=== PATIENT | female | born 1990 | race Hispanic/Latino ===

== ENCOUNTER 2016-12-24 22:02 | Emergency (ER) | payer MEDICAID ==
[2016-12-24 22:28] VITALS: RESP 16; O2SAT 97
--- NOTE | 2016-12-24 22:49 | ED PDOC ---
HPI: General Adult Time Seen by Provider: 12/24/16 22:47 Chief Complaint (Nursing): Flu-like Symptoms Chief Complaint (Provider): flu-like illness History Per: Patient (26 y/o female here for evaluation of cough/uri/fever/ chills x 3-4 days. Denies any vomiting/diarrhea. NOtes sore throat. Denies any smoking hx.) Past Medical History Reviewed: Historical Data, Nursing Documentation, Vital Signs Vital Signs: Last Vital Signs Temp 100.1 F H 12/24/16 22:25 Pulse 120 H 12/24/16 22:25 Resp 16 12/24/16 22:25 BP 110/66 12/24/16 22:25 Pulse Ox 97 12/24/16 22:49 - Family History Family History: States: No Known Family Hx - Home Medications Home Medications: Ambulatory Orders Medication Instructions Recorded Nitrofurantoin Macrocrystals 100 mg PO BID #20 cap 09/05/14 [Macrobid] Acetaminophen [Acetaminophen Extra 2 tab PO Q6 PRN #24 tablet 12/24/16 Strength] Promethazine/Codeine 5 ml PO Q12 PRN #100 ml 12/24/16 [Codeine/Promethazine 10 MG/5 Ml-6.25 MG/5 Ml] Pseudoephedrine [Sudafed Tab] 60 mg PO Q6 PRN #24 tab 12/24/16 - Allergies Allergies/Adverse Reactions: Allergies Allergy/AdvReac Type Severity Reaction Status Date / Time No Known Allergies Allergy Verified 11/14/15 21:33 Review of Systems ROS Statement: Except As Marked, All Systems Reviewed And Found Negative Constitutional: Positive for: Fever, Chills ENT: Positive for: Throat Pain Respiratory: Positive for: Cough Physical Exam - Reviewed Nursing Documentation Reviewed: Yes Vital Signs Reviewed: Yes - Physical Exam Appears: Positive for: Well, Non-toxic, No Acute Distress Head Exam: Positive for: ATRAUMATIC, NORMAL INSPECTION, NORMOCEPHALIC Skin: Positive for: Normal Color, Warm, DRY Eye Exam: Positive for: EOMI, Normal appearance, PERRL ENT: Positive for: Normal ENT Inspection, Nasal Congestion Neck: Positive for: Normal, Painless ROM Cardiovascular/Chest: Positive for: Regular Rate, Rhythm Respiratory: Positive for: CNT, Normal Breath Sounds Gastrointestinal/Abdominal: Positive for: Normal Exam, Bowel Sounds, Soft Back: Positive for: Normal Inspection Extremity: Positive for: Normal ROM Neurologic/Psych: Positive for: Alert, Oriented - ECG O2 Sat by Pulse Oximetry: 97 - Progress ED Course And Treament: acetaminophen 975mg x 1 dose patient unable to tolerate rapid strep. Refuses in ED. Zofran 4 mg ODT for nausea Disposition - Clinical Impression Clinical Impression: Influenza-like symptoms - Patient ED Disposition Is Patient to be Admitted: Transfer of Care - Disposition Referrals: FAMILY PROVIDER,NO [Primary Care Provider] - Disposition Time: 23:51 Condition: FAIR Prescriptions: Acetaminophen [Acetaminophen Extra Strength] 2 tab PO Q6 PRN #24 tablet PRN Reason: Fever >100.4 F Promethazine/Codeine [Codeine/Promethazine 10 MG/5 Ml-6.25 MG/5 Ml] 5 ml PO Q12 PRN #100 ml PRN Reason: Cough Pseudoephedrine [Sudafed Tab] 60 mg PO Q6 PRN #24 tab PRN Reason: Nasal Congestion Instructions: Influenza (ED) Forms: [employer] ED School/Work Excuse Patient Signed Over To: Francisca Biggs Handoff Comments: flu
--- NOTE | 2016-12-25 00:01 | ED PDOC ---
- ECG O2 Sat by Pulse Oximetry: 97 Pulse Ox Interpretation: Normal - Progress ED Course And Treament: Case was signed out to marketing writer from [facility] pending flu swab Medical Decision Making Medical Decision Making: Flu is negative. Disposition - Clinical Impression Clinical Impression: Influenza-like symptoms - POA Present On Arrival: None - Disposition Referrals: [facility] [Outside] Disposition: Routine/Home Disposition Time: 01:06 Condition: STABLE Additional Instructions: Take meds as directed. Follow up with primary care doctor in 1-2 days. Prescriptions: Acetaminophen [Acetaminophen Extra Strength] 2 tab PO Q6 PRN #24 tablet PRN Reason: Fever >100.4 F Promethazine/Codeine [Codeine/Promethazine 10 MG/5 Ml-6.25 MG/5 Ml] 5 ml PO Q12 PRN #100 ml PRN Reason: Cough Pseudoephedrine [Sudafed Tab] 60 mg PO Q6 PRN #24 tab PRN Reason: Nasal Congestion Instructions: Cold Symptoms (ED) Forms: [facility] ED School/Work Excuse
[2016-12-25 00:03] VITALS: BP 112/72; PULSE 92; TEMP 99.9
== END 2016-12-25 01:13 | disposition home or self-care (01) ==
LOC: H.ER 22:02
DX: R68.89 Other general symptoms and signs (principal); R50.9 Fever, unspecified; R05 Cough; J02.9 Acute pharyngitis, unspecified

== ENCOUNTER 2018-02-25 21:14 | Emergency (ER) | payer MEDICAID ==
[2018-02-25 21:52] VITALS: O2SAT 99
--- NOTE | 2018-02-25 22:42 | ED PDOC ---
HPI: Female Pain Time Seen by Provider: 02/25/18 22:33 Chief Complaint (Nursing): Female Genitourinary Chief Complaint (Provider): dysuria History Per: Patient Additional Complaint(s): 27-year-old female presents with dysuria and urinary frequency 1 day. Patient also states she had temperature earlier of 101 and she took Tylenol which helped. No nausea or vomiting. Patient has lower abdominal discomfort as well as bilateral flank pain. She denies any concern for STD's. Past Medical History Reviewed: Historical Data, Nursing Documentation, Vital Signs Vital Signs: Last Vital Signs Temp 98.4 F 02/25/18 21:48 Pulse 117 H 02/25/18 21:48 Resp 16 02/25/18 21:48 BP 105/65 02/25/18 21:48 Pulse Ox 99 02/25/18 21:48 - Medical History PMH: No Chronic Diseases - Surgical History Surgical History: No Surg Hx - Family History Family History: States: No Known Family Hx - Living Arrangements Living Arrangements: With Family - Social History Current smoker - smoking cessation education provided: No Alcohol: None Drugs: Denies - Home Medications Home Medications: Ambulatory Orders Medication Instructions Recorded Nitrofurantoin Macrocrystals 100 mg PO BID #20 cap 09/05/14 [Macrobid] Acetaminophen [Acetaminophen Extra 2 tab PO Q6 PRN #24 tablet 12/24/16 Strength] Promethazine/Codeine 5 ml PO Q12 PRN #100 ml 12/24/16 [Codeine/Promethazine 10 MG/5 Ml-6.25 MG/5 Ml] Pseudoephedrine [Sudafed Tab] 60 mg PO Q6 PRN #24 tab 12/24/16 Ciprofloxacin HCl [Cipro] 500 mg PO BID #14 tablet 02/25/18 - Allergies Allergies/Adverse Reactions: Allergies Allergy/AdvReac Type Severity Reaction Status Date / Time No Known Allergies Allergy Verified 11/14/15 21:33 Review of Systems ROS Statement: Except As Marked, All Systems Reviewed And Found Negative Constitutional: Positive for: Fever, Chills Gastrointestinal: Positive for: Abdominal Pain. Negative for: Nausea, Vomiting , Diarrhea, Constipation Genitourinary Female: Positive for: Dysuria, Frequency, Pelvic Pain. Negative for: Incontinence, Hematuria, Vaginal Discharge, Vaginal Bleeding Physical Exam - Reviewed Nursing Documentation Reviewed: Yes Vital Signs Reviewed: Yes - Physical Exam Appears: Positive for: Well, Non-toxic, No Acute Distress Skin: Positive for: Normal Color. Negative for: Rash Eye Exam: Positive for: Normal appearance Cardiovascular/Chest: Positive for: Regular Rate, Rhythm Respiratory: Positive for: Normal Breath Sounds. Negative for: Wheezing, Respiratory Distress Gastrointestinal/Abdominal: Positive for: Soft. Negative for: Tenderness, Distended, Guarding, Rebound Back: Positive for: L CVA Tenderness, R CVA Tenderness. Negative for: Vertebral Tenderness Extremity: Positive for: Normal ROM Neurologic/Psych: Positive for: Alert, Oriented - Laboratory Results Urine POC: Negative Urine dip results: Positive for: Leukocyte Esterase (small), Blood (moderate). Negative for: Nitrate, Ketones, Glucose, Bilirubin, Protein - ECG O2 Sat by Pulse Oximetry: 99 Pulse Ox Interpretation: Normal Medical Decision Making Medical Decision Makin27 year old with dysuria Plan: Urine test Urine dip Urine culture Urine dip positive for leuks and blood. Initial dose Cipro given in ED along with prescription for same. Patient was instructed to drink plenty of fluids, take Tylenol or Motrin for pain as needed and follow up with primary doctor in 2 -3 days. Disposition - Clinical Impression Clinical Impression: Urinary tract infection - Patient ED Disposition Is Patient to be Admitted: No Counseled Patient/Family Regarding: Studies Performed, Diagnosis, Need For Followup, Rx Given - Disposition Referrals: [facility] [Outside] Disposition: Routine/Home Disposition Time: 23:17 Condition: STABLE Additional Instructions: Take prescription meds as directed. Drink plenty of fluids. Tylenol or Advil for pain as needed. Follow-up with primary doctor in 2-3 days. Prescriptions: Ciprofloxacin HCl [Cipro] 500 mg PO BID #14 tablet Instructions: Urinary Tract Infection, Adult (DC) Forms: [employer] (Czech)
[2018-02-25 23:58] VITALS: BP 118/70; PULSE 89; RESP 18; TEMP 98
== END 2018-02-25 23:58 | disposition home or self-care (01) ==
LOC: H.ER 21:14
DX: N39.0 Urinary tract infection, site not specified (principal)

== ENCOUNTER 2018-10-26 10:31 | Observation (INO) | payer MEDICAID ==
[2018-10-26] MEDS ORDERED: Sodium Chloride 0.9% 1,000 ML IV STA ×3 (11:27→18:18)
--- NOTE | 2018-10-26 11:45 | ED PDOC ---
HPI: General Adult Time Seen by Provider: 10/26/18 11:44 Chief Complaint (Nursing): Fever Chief Complaint (Provider): FEVER/COUGH History Per: Patient (28 Y/O FEMALE HERE WITH FEVER/COUGH X 2 DAYS ASSOCIATED WITH BODYACHES. DENIES ANY VOMITING/DYSURIA/ABDOMINAL PAIN/VAGINAL BLEEDING. NO FLU CONTACT.) Past Medical History Reviewed: Historical Data, Nursing Documentation, Vital Signs Vital Signs: Last Vital Signs Temp 98.3 F 10/26/18 10:34 Pulse 115 H 10/26/18 10:34 Resp 18 10/26/18 10:34 BP 91/54 L 10/26/18 10:34 Pulse Ox 100 10/26/18 10:34 - Family History Family History: States: Unknown Family Hx - Home Medications Home Medications: Ambulatory Orders Medication Instructions Recorded No Known Home Med 10/26/18 - Allergies Allergies/Adverse Reactions: Allergies Allergy/AdvReac Type Severity Reaction Status Date / Time No Known Allergies Allergy Verified 04/15/18 21:31 Review of Systems ROS Statement: Except As Marked, All Systems Reviewed And Found Negative Constitutional: Positive for: Fever Respiratory: Positive for: Cough Physical Exam - Reviewed Nursing Documentation Reviewed: Yes Vital Signs Reviewed: Yes - Physical Exam Appears: Positive for: Well, Non-toxic, No Acute Distress Head Exam: Positive for: ATRAUMATIC, NORMAL INSPECTION, NORMOCEPHALIC Skin: Positive for: Normal Color, Warm, DRY Eye Exam: Positive for: EOMI, Normal appearance, PERRL ENT: Positive for: Normal ENT Inspection Neck: Positive for: Normal, Painless ROM Cardiovascular/Chest: Positive for: Regular Rate, Rhythm Respiratory: Positive for: CNT, Normal Breath Sounds Gastrointestinal/Abdominal: Positive for: Normal Exam, Soft Back: Positive for: Normal Inspection Extremity: Positive for: Normal ROM Neurologic/Psych: Positive for: Alert, Oriented - Laboratory Results Result Diagrams: 10/26/18 11:40 10/26/18 11:40 - ECG O2 Sat by Pulse Oximetry: 100 - Progress ED Course And Treament: TAMIFLU 75 MG X 1 DOSE NS 1 LITER 500 ML PER HOUR INFLUENZA A POSITIVE NOTED. PATIENT TACHYCARDIC 120. REPEAT TEMP AFEBRILE. NS 1 LITER 500ML PER 2ND LITER. PATIENT COMPLAINT OF NAUSEA. ZOFRAN 4 MG IV X 1 DOSE REPEAT VITALS AFTER 2LITERS. AFEBRILE TACHYCARDIA 122. PATIENT RE-EVALUATED. STATES SHE FEELS IMPROVED BUT HAS HAD TACHYCARDIA PRIOR TO FEVERS NOTED AND HAD PLANNED TO SPEAK TO DR. MARQUEZ ABOUT THIS. TYLENOL 975MG X 1 DOSE ORDERED. D/W DR. DE. THIRD LITER NS ORDERED. WILL ADMIT TELE OBSEVATION FOR TACHYCARDIA. Disposition - Clinical Impression Clinical Impression: Influenza A, Tachycardia - Patient ED Disposition Is Patient to be Admitted: Yes - Disposition Disposition Time: 18:18 Condition: FAIR - Pt Status Changed To: Hospital Disposition Of: Observation
[2018-10-26 12:02] LABS: BASO % 0.2 % (0.0-2.0); EOS % 0.6 % (0.0-4.0); HEMOGLOBIN 9.4 g/dL (12.0-16.0); LYMPH # 0.6 K/uL (1.0-4.3); MEAN CELL VOLUME 94.6 fl (81.0-99.0); MEAN CORPUSCULAR HEMOGLOBIN 31.2 pg (27.0-31.0); MEAN PLATELET VOLUME 9.2 fl (7.2-11.7); MONO # 0.4 K/uL (0.0-0.8); NEUT % 79.2 % (50.0-75.0); NRBC % 0.1 % (0.0-0.0); RBC 3.02 Mil/uL (3.80-5.20); RED CELL DISTRIBUTION WIDTH 12.6 % (11.5-14.5)
[2018-10-26 12:04] LABS: ALB/GLOB RATIO 0.9 (1.0-2.1); ALBUMIN 3.1 g/dL (3.5-5.0); ALT/SGPT 7 U/L (9-52); AST/SGOT 23 U/L (14-36); BLOOD UREA NITROGEN 4 mg/dl (7-17); CALCIUM 8.2 mg/dL (8.4-10.2); GFR NON-AFRICAN AMERICAN > 60
--- NOTE | 2018-10-26 20:07 | CP.PCM.HP ---
History of Present Illness - History of Present Illness History of Present Illness: 28-year-old at 20.6 weeks (dated on LMP, [place] 03/09/19) was sent from OBGYN office due to hypotension. She admits to 2 day duration of malaise and fatigue but denies syncope, lightheadedness, fever, cough, painful contractions, vaginal bleeding, gush of fluid from vagina, malodorous vaginal discharge, headache, change in vision, new-onset edema, recent sexual intercourse, nausea and vomiting. No complications with thus far, was last seen in office today for anatomy ultrasound. Primary OBGYN: Dr Tomas PMH: denies Meds: denies Family Hx: denies Surgical Hx: denies OBHx: x2, SAB x2, Medical AB x1 Social: Denies EtOH, illicit drugs and tobacco use ED Course: Vitals: BP 91/39 T 98.8F HR 115 RR 17 SpO2 100% Influenza A positive CBC: WNL CMP: BUN/Cr 4/0.5 2 x 1L NS bolus Tamiflu 75mg once Troponin: WNL EKG: sinus tachycardia @ 118 bpm with occasional PVC, no ectopy noted. Present on Admission - Present on Admission Any Indicators Present on Admission: No Past Patient History - Past Social History Smoking Status: Never Smoked - PSYCHIATRIC Hx Substance Use: No - SURGICAL HISTORY Hx Surgeries: No Meds Allergies/Adverse Reactions: Allergies Allergy/AdvReac Type Severity Reaction Status Date / Time No Known Allergies Allergy Verified 04/15/18 21:31 Physical Exam - Constitutional Appears: Non-toxic - Head Exam Head Exam: NORMAL INSPECTION - Eye Exam Eye Exam: Normal appearance - ENT Exam ENT Exam: Mucous Membranes Dry - Respiratory Exam Respiratory Exam: NORMAL BREATHING PATTERN. absent: Respiratory Distress - Cardiovascular Exam Cardiovascular Exam: RRR, +S1, +S2 - GI/Abdominal Exam GI & Abdominal Exam: Soft. absent: Guarding, Rebound, Tenderness Additional comments: IUP - FHR by doppler 155 - Back Exam Back exam: NORMAL INSPECTION - Neurological Exam Neurological exam: Alert, Normal Gait, Oriented x3 - Psychiatric Exam Psychiatric exam: Normal Affect, Normal Mood - Skin Skin Exam: Dry, Intact, Normal Color, Warm Results - Vital Signs Recent Vital Signs: Last Vital Signs Temp 98.8 F 10/26/18 17:36 Pulse 115 H 10/26/18 19:21 Resp 17 02/06/19 19:21 BP 91/39 L 10/26/18 19:21 Pulse Ox 100 10/26/18 19:21 - Labs Result Diagrams: 10/26/18 11:40 10/26/18 11:40 Labs: Laboratory Results - last 24 hr 10/26/18 10/26/18 10/26/18 11:40 11:40 11:40 WBC 5.0 RBC 3.02 L Hgb 9.4 L Hct 28.5 L MCV 94.6 MCH 31.2 H MCHC 33.0 RDW 12.6 Plt Count 171 MPV 9.2 Neut % (Auto) 79.2 H Lymph % (Auto) 12.0 L [place] % (Auto) 8.0 Eos % (Auto) 0.6 Baso % (Auto) 0.2 Neut # (Auto) 4.0 Lymph # (Auto) 0.6 L [place] # (Auto) 0.4 Eos # (Auto) 0.0 Baso # (Auto) 0.0 Sodium 134 Potassium 3.6 Chloride 101 Carbon Dioxide 23 Anion Gap 14 BUN 4 L Creatinine 0.5 L Est GFR ( Amer) > 60 Est GFR (Non-Af Amer) > 60 Random Glucose 90 Calcium 8.2 L Total Bilirubin 0.6 AST 23 ALT 7 L D Alkaline Phosphatase 59 Troponin I Total Protein 6.3 Albumin 3.1 L D Globulin 3.3 Albumin/Globulin Ratio 0.9 L Influenza Typ A,B (EIA) Pos for influenza a H 10/26/18 17:21 WBC RBC Hgb Hct MCV MCH MCHC RDW Plt Count MPV Neut % (Auto) Lymph % (Auto) [place] % (Auto) Eos % (Auto) Baso % (Auto) Neut # (Auto) Lymph # (Auto) [place] # (Auto) Eos # (Auto) Baso # (Auto) Sodium Potassium Chloride Carbon Dioxide Anion Gap BUN Creatinine Est GFR ( Amer) Est GFR (Non-Af Amer) Random Glucose Calcium Total Bilirubin AST ALT Alkaline Phosphatase Troponin I < 0.0120 Total Protein Albumin Globulin Albumin/Globulin Ratio Influenza Typ A,B (EIA) Assessment & Plan - Assessment and Plan (Free Text) Assessment: 28-year-old at 20.6 weeks (dated on LMP, [place] 03/09/19) was sent from OBGYN office due to hypotension and was found to be tachycardic and Flu positive in ED. Plan: Influenza A - Tamiflu 75mg BID - Zofran 4mg PRN for nausea - IVF: D5 0.45NS + 20mEq K - Acetaminophen 650 Q6H PRN for T > 100.4F Tachycardia - HR Range 106-120 - Admit to telemetry - Monitor vitals Hypotension - BP range 81-101/37-54 - Baseline as per patient - Monitor vitals - IVF as above Intrauterine - Doppler daily - FHR 155 by doppler at 19:20 DVT Prophylaxis - SCDs - Patient ambulating
[2018-10-26] MEDS: Potassium Ch 20mEq in D5-1/2NS 1,000 ML IV SCH (21:38)
[2018-10-27 00:03] VITALS: RESP 18
[2018-10-27] MEDS ORDERED: Influenza Vaccine (5 YR UP)/PF 60 MCG/0.5 ML SYR IM ONE (01:09)
[2018-10-27 05:38] LABS: HEMOGLOBIN 7.7 g/dL (12.0-16.0); MEAN CELL VOLUME 94.5 fl (81.0-99.0); MEAN CORPUSCULAR HEMOGLOBIN 30.9 pg (27.0-31.0); MEAN CORPUSCULAR HGB CONC 32.7 g/dL (33.0-37.0); RBC 2.49 Mil/uL (3.80-5.20); RED CELL DISTRIBUTION WIDTH 12.1 % (11.5-14.5); WHITE BLOOD COUNT 3.5 K/uL (4.8-10.8)
[2018-10-27 05:56] LABS: BLOOD UREA NITROGEN < 2 mg/dl (7-17); CALCIUM 7.3 mg/dL (8.4-10.2); GFR NON-AFRICAN AMERICAN > 60
[2018-10-27] MEDS ORDERED: Influenza Vaccine 60 mcg/0.5 mL SYR (4YR UP) IM ONE (06:00)
[2018-10-27] MEDS: Potassium Ch 20mEq in D5-1/2NS 1,000 ML IV SCH (06:09)
[2018-10-27 08:11] VITALS: BP 84/45; PULSE 105; TEMP 98.5; O2SAT 97
--- NOTE | 2018-10-27 09:22 | CARD ---
APPROVED REPORT Date of service: 10/26/2018 EKG Measurement Heart [id number] <Conclusion> Sinus tachycardia with occasional premature ventricular complexes Otherwise normal ECG
--- NOTE | 2018-10-27 10:23 | CP.PCM.DIS ---
Provider - Provider Date of Admission: 10/26/18 18:18 Attending physician: Kelsie Gardner MD Primary care physician: Dr. MARQUEZ Time Spent in preparation of Discharge (in minutes): 30 Diagnosis - Discharge Diagnosis (1) Influenza A Status: Acute Comment: Patient has been consistently afebrile. continue Tamiflu therapy for 3 more days to complete 5 day course Hospital Course - Lab Results Lab Results: Most Recent Lab Values WBC 3.5 K/uL (4.8-10.8) L 10/27/18 05:15 RBC 2.49 Mil/uL (3.80-5.20) L 10/27/18 05:15 Hgb 7.7 g/dL (12.0-16.0) L 10/27/18 05:15 Hct 23.5 % (34.0-47.0) L 10/27/18 05:15 MCV 94.5 fl (81.0-99.0) 10/27/18 05:15 MCH 30.9 pg (27.0-31.0) 10/27/18 05:15 MCHC 32.7 g/dL (33.0-37.0) L 10/27/18 05:15 RDW 12.1 % (11.5-14.5) 10/27/18 05:15 Plt Count 118 K/uL (130-400) L D 10/27/18 05:15 MPV 9.2 fl (7.2-11.7) 10/26/18 11:40 Neut % (Auto) 79.2 % (50.0-75.0) H 10/26/18 11:40 Lymph % (Auto) 12.0 % (20.0-40.0) L 10/26/18 11:40 [place] % (Auto) 8.0 % (0.0-10.0) 10/26/18 11:40 Eos % (Auto) 0.6 % (0.0-4.0) 10/26/18 11:40 Baso % (Auto) 0.2 % (0.0-2.0) 10/26/18 11:40 Neut # (Auto) 4.0 K/uL (1.8-7.0) 10/26/18 11:40 Lymph # (Auto) 0.6 K/uL (1.0-4.3) L 10/26/18 11:40 [place] # (Auto) 0.4 K/uL (0.0-0.8) 10/26/18 11:40 Eos # (Auto) 0.0 K/uL (0.0-0.7) 10/26/18 11:40 Baso # (Auto) 0.0 K/uL (0.0-0.2) 10/26/18 11:40 Sodium 132 mmol/l (132-148) 10/27/18 05:15 Potassium 3.5 MMOL/L (3.6-5.0) L 10/27/18 05:15 Chloride 105 mmol/L (98-107) 10/27/18 05:15 Carbon Dioxide 19 mmol/L (22-30) L 10/27/18 05:15 Anion Gap 12 (10-20) 10/27/18 05:15 BUN < 2 mg/dl (7-17) L 10/27/18 05:15 Creatinine 0.5 mg/dl (0.7-1.2) L 10/27/18 05:15 Est GFR ( Amer) > 60 10/27/18 05:15 Est GFR (Non-Af Amer) > 60 10/27/18 05:15 Random Glucose 94 mg/dL (65-105) 10/27/18 05:15 Calcium 7.3 mg/dL (8.4-10.2) L 10/27/18 05:15 Total Bilirubin 0.6 mg/dl (0.2-1.3) 10/26/18 11:40 AST 23 U/L (14-36) 10/26/18 11:40 ALT 7 U/L (9-52) L D 10/26/18 11:40 Alkaline Phosphatase 59 U/L (38-126) 10/26/18 11:40 Troponin I < 0.0120 ng/mL (0.00-0.120) 10/26/18 17:21 Total Protein 6.3 G/DL (6.3-8.2) 10/26/18 11:40 Albumin 3.1 g/dL (3.5-5.0) L D 10/26/18 11:40 Globulin 3.3 gm/dL (2.2-3.9) 10/26/18 11:40 Albumin/Globulin Ratio 0.9 (1.0-2.1) L 10/26/18 11:40 Influenza Typ A,B (EIA) Pos for influenza a (NEGATIVE) H 10/26/18 11:40 - Hospital Course Hospital Course: 28-year-old at 20.6 weeks (dated on LMP, [place] 03/09/19) was sent from [employer] office due to hypotension and was found to be tachycardic and Flu positive in ED. - Patient was appropriated hydrated in the ER with 2x 1L NS bolus - noted tachycardia of 115 in the E.D - EKG: sinus tachycardia @ 118 bpm with occasional PVC, no ectopy noted. Patient was admitted to Telemetry given tachycardia. Patient was started on Tamiflu, therapeutic dose of BID for flu treatment, 5 day course to be completed. FHR was monitored daily by doppler and FHR was noted to be 155-160's. Patient stable at this time for discharge given she is symptomatically improved and afebrile. To complete 3 more days of Tamiflu as she has completed 2 days here in the hospital. Discharge Exam - Head Exam Head Exam: NORMAL INSPECTION - Eye Exam Eye Exam: Normal appearance - ENT Exam ENT Exam: Mucous Membranes Moist - Respiratory Exam Respiratory Exam: Clear to PA & Lateral, NORMAL BREATHING PATTERN, UNREMARKABLE. absent: Accessory Muscle Use, Chest Wall Tenderness, Decreased Breath Sounds, Prolonged Expiratory Phase, Rales, Rhonchi, Wheezes, Respiratory Distress, Stridor - Cardiovascular Exam Cardiovascular Exam: REGULAR RHYTHM, RRR, +S1, +S2. absent: Clicks, Diastolic murmur, Gallop, JVD, Rubs, +S4, Systolic Murmur - GI/Abdominal Exam GI & Abdominal Exam: Normal Bowel Sounds, Soft, Unremarkable. absent: Distended, Firm, Guarding, Hernia, Mass, Pulsatile Mass, Rebound, Rigid, Tenderness Additional comments: Gravid Doppler- FHT 160's - Extremities Exam Extremities exam: normal capillary refill, normal inspection, pedal pulses present - Skin Skin Exam: Dry, Intact, Normal Color, Warm Discharge Plan - Discharge Medications Prescriptions: Oseltamivir Cap [Tamiflu Cap] 75 mg PO BID 3 Days #6 capsule - Follow Up Plan Condition: GOOD Disposition: HOME/ ROUTINE Patient education suggested?: Yes Instructions: Flu, Adult (DC) Additional Instructions: Follow up with PMD in 1 week.
== END 2018-10-27 15:35 | disposition home or self-care (01) ==
LOC: H.ER 10:31 → H.ERHOLD 18:18 → H.TEL 23:50
PROVIDERS: ADMIT Obstetrics & Gynecology Gynecology; ATTEND Obstetrics & Gynecology Gynecology
DX: R00.0 Tachycardia, unspecified (principal); O99.512 Diseases of the respiratory system complicating pregnancy, second trimester; O99.412 Diseases of the circulatory system complicating pregnancy, second trimester; J10.1 Influenza due to other identified influenza virus with other respiratory manifestations; I49.3 Ventricular premature depolarization; Z3A.20 20 weeks gestation of pregnancy; I95.9 Hypotension, unspecified
CPT/HCPCS: 36415; 80048; 80053; 84484; 85025; 85027; 87804; 93005; 96360; 96361; 96374; G0378; J2405; J7030